=== PATIENT | male | born 1965 | race Caucasian/White ===

== ENCOUNTER 2020-10-15 21:20 | Emergency (ER) | payer OTHER ==
[2020-10-15] MEDS ORDERED: ACETAMINOPHEN 325 MG TABLET (FP) PO ONE (21:42)
[2020-10-15 21:45] VITALS: BMI 25.8
[2020-10-15] MEDS ORDERED: ACETAMINOPHEN 325 MG TABLET (FP) ONE (22:07)
[2020-10-15 22:48] LABS: EPI CELLS 7 /uL (0-25.1); HYALINE CASTS 1 /uL (0-3.1); URINE APPEARANCE CLEAR; URINE BACTERIA 23 /uL (0-1359); URINE BILIRUBIN NEGATIVE (NEGATIVE); URINE COLOR YELLOW; URINE GLUCOSE (UA) NEGATIVE (NEGATIVE); URINE KETONE TRACE (NEGATIVE); URINE LEUK ESTERASE NEGATIVE (NEGATIVE); URINE NITRITE NEGATIVE (NEGATIVE); URINE PROTEIN 1+ (NEGATIVE); URINE RBC 110 /uL (0-23.9)
[2020-10-16 00:54] VITALS: BP 134/81; PULSE 79; TEMP 98.9
[2020-10-16] MEDS ORDERED: DOXYCYCLINE HYCLATE 100 MG CAPSULE PO ONE ×2 (01:41→01:56)
== END 2020-10-16 03:05 | disposition home or self-care (01) ==
LOC: JER 21:20
DX: R35.0 Frequency of micturition (principal); R31.9 Hematuria, unspecified
CPT/HCPCS: 36415; 74176-TC; 76870-TC; 81003; 87086; 87491; 87591; 99285-25

== ENCOUNTER 2021-09-21 08:57 | Emergency (ER) | payer OTHER ==
[2021-09-21 09:08] VITALS: BP 123/75; PULSE 84; TEMP 98.9; BMI 32.1
[2021-09-21 12:30] LABS: BASO % 0.5 % (0-2.0); EOS % 0.7 % (0-4.5); HEMATOCRIT 36.8 % (35.4-49); HEMOGLOBIN 12.6 GM/dL (11.7-16.9); LYMPH % 17.7 % (8-40); MCH 26.5 pg (25.7-33.7); MCHC 34.2 g/dl (32.0-35.9); MEAN CELL VOLUME 77.4 fl (80-96); MEAN PLT VOLUME 7.9 fl (7.5-11.1); MONO % 5.5 % (3.8-10.2); NEUT % 75.6 % (42.8-82.8); PLATELET COUNT 271 10^3/uL (134-434); RBC 4.75 M/mm3 (4.00-5.60); RDW 15.8 % (11.9-15.9)
[2021-09-21 12:58] LABS: ALBUMIN 3.9 g/dl (3.4-5.0); BLOOD UREA NITROGEN 15.7 mg/dL (7-18); CALCIUM 8.8 mg/dL (8.5-10.1)
[2021-09-21 13:02] LABS: BILIRUBIN,TOTAL 0.6 mg/dL (0.2-1); CREATININE 0.7 mg/dL (0.55-1.3); TOT PROT 7.5 g/dl (6.4-8.2)
== END 2021-09-21 13:41 | disposition home or self-care (01) ==
LOC: JER 08:57
DX: R60.0 Localized edema (principal)
CPT/HCPCS: 36415; 80053; 85025; 93970-TC; 99284-25